=== PATIENT | male | born 1935 | race Caucasian/White ===

== ENCOUNTER → 2018-12-11 | Outpatient (CLI) | payer OTHER ==
[~2018-12-11] MED LIST: ADULT LOW DOSE81 MG PO; AMBIEN 10 MG TA10 MG PO; ASPIRIN EC81 M1 PO; BACTROBAN NASAL1 GM NS; DONNATAL EXTEN1 EACH PO; EXCEDRIN CAPLE1 EACH PO; FLOMAX PO; HIBICLENS120 ML TP; IMITREX 50 MG T50 MG PO; IMITREX100 MG PO; LIPITOR80 MG PO; LORTAB 5 MG/5001 TAB PO; MELOXICAM7.5 MG PO; MOBIC7.5 MG PO; NEURONTIN300 MG PO; NITROSTAT0.4 MG SL; OMEGA-3100 MG PO; PERCOCET 5-3251 EACH PO; PRILOSEC 20 MG20 MG PO; SIMVASTATIN20 MG PO; TOPROL XL50 MG PO; UNICOMPLEX M TA1 TA1 PO; VIAGRA100 MG PO; XANAX 0.5 MG0.5 MG PO; ZESTRIL10 MG PO
--- NOTE | 2018-12-14 08:34 | SLE ---
[facility] [place] [address] [place] [address] POLYSOMNOGRAPHY STUDY Name: DESTINY BARBER [id number] Admission: 12/11/18 Attend Phys: Babak Deo MD Discharge: Date of : 35 Report #: [id number] THIS REPORT FOR: //name// CC: Babak Hines MD DATE OF SERVICE: 12/11/2018 ATTENDING PHYSICIAN: Dr. Ulises Hines. The patient is an 83-year-old who weighs 216 pounds with a BMI of 31. The patient had a home sleep study and was found to have severe JANA at an AHI of 43 per hour. The patient returned for in-lab CPAP titration study. During the night study, the patient spent 390 minutes in bed and slept for 183 minutes with a low sleep efficiency of 47%. Sleep latency was 16.9 minutes with a REM latency of 62 minutes. Sleep architecture showed normal stage 1 sleep, increased stage 2 sleep, absent slow wave and reduced REM sleep. EKG monitoring revealed an average heart rate of 61 beats per minute. No sustained arrhythmias observed. No PLMS observed. The patient was started on CPAP at 5 cm of water and titrated up to 9 cm of water. At the final pressure, the patient slept for 38 minutes including 2 minutes of supine REM sleep. The patient's AHI was 12.5 per hour and oxygen saturation remained above 91%. The patient had 4 hypopneas and 4 central apneas at this pressure. I would recommend the patient should be placed on an auto CPAP with a minimum pressure of 8 cm of water and the maximum pressure of 12 cm of water. IMPRESSION: 1. Severe sleep apnea diagnosed by home sleep study. 2. No clinically significant periodic limb movements. RECOMMENDATIONS: 1. The patient should be placed on an auto CPAP with a minimum pressure of 8 cm of water and a maximum of 12 cm of water. The patient should have a download data in 30-90 days to assess the efficacy of the current auto PAP pressure and make sure AHI remains less than 5 per hour. Weight loss is strongly advised. 2. 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 3. Cautioned regarding driving until symptoms of sleep apnea resolve with the use of CPAP. [facility] [address] [place] [address] POLYSOMNOGRAPHY STUDY Name: DESTINY BARBER Room #: REG [facility].#: [id number] Admission: 12/11/18 Attend Phys: Babak Doe MD Discharge: Date of : 35 Report #: [id number] 4. The patient also had sleep maintenance insomnia. If this is a chronic condition, then it should be further evaluated and treated according to the etiology. <ELECTRONICALLY SIGNED> By: Babak Doe MD 12/14/18 0834 1440 1859 Babak Doe MD /nt
== END ==
LOC: SLEEPLAB 13:45
DX: G47.30 Sleep apnea, unspecified (principal)

== ENCOUNTER 2019-01-02 18:37 | Emergency (ER) | payer OTHER ==
[~2019-01-02] VITALS: Ht 177.8 cm; Wt 99.8 kg
--- NOTE | ~2019-01-02 | EKG ---
[address] [address] [place] [address] ELECTROCARDIOGRAM REPORT Name: KARENGUSTABODESTINY URIAS Room #: REG GREG Cruz#: [id number] Admission: 01/02/19 Attend Phys: Discharge: Date of : 35 Report #: [id number] THIS REPORT FOR: //name// [facility] ED Test Date: 2019-01-02 Test Time: 19:34:38 Pat Name: DESTINY BARBER Department: Room: Gender: M Leasing Coordinator: CATHERINE : 1935 Requested By: Quang Tripathi Order Number: [id number] MD: Measurements Intervals [place] Rate: 87 P: [place]: QRS: 84 QRSD: 146 T: 42 QT: 384 QTc: 462 Interpretive Statements Atrial fibrillation Right bundle branch block No previous ECG available for comparison [email or web address] By: 33 33 Chastity Haywood MD /EPI
[~2019-01-02 18:37] MED LIST changes: -MELOXICAM7.5 MG PO; -NEURONTIN300 MG PO; -SIMVASTATIN20 MG PO
[2019-01-02] MEDS ORDERED: SIMVASTATIN20 MG PO (19:12)
[2019-01-02 19:25] LABS: ABSOLUTE NEUTROPHILS 11.3 thou/uL (1.4-8.2); BASOPHILS 0.3 % (0.0-2.0); EOSINOPHILS 1.1 % (0.0-3.0); HEMATOCRIT 47.9 % (42.0-52.0); HEMOGLOBIN 16.1 gm/dL (14.0-18.0); LYMPHOCYTES 12.6 % (24.0-44.0); MCHC 33.5 g/dL (28.0-37.0); MCV 89.5 fL (80.0-100.0); MONOCYTES 8.6 % (1.0-8.0); PLATELET COUNT 169 thou/uL (150-400); POLYS 77.4 % (36.0-66.0); RBC 5.36 mil/uL (4.50-6.00); RDW 14.1 % (10.5-14.5); WBC 14.5 thou/uL (4.0-11.0)
[2019-01-02 19:36] LABS: CALCIUM 9.2 mg/dL (8.5-10.1); CREATININE 0.9 mg/dL (0.7-1.3)
[2019-01-02] MEDS ORDERED: MELOXICAM7.5 MG PO (20:26)
[2019-01-02] MEDS ORDERED: NEURONTIN300 MG PO (20:27)
[2019-01-02 21:30] LABS: URINE BILIRUBIN NEGATIVE (Negative); URINE BLOOD NEGATIVE (Negative); URINE CLARITY CLEAR; URINE COLOR YELLOW; URINE GLUCOSE-RANDOM* NEGATIVE (Negative); URINE KETONES NEGATIVE (Negative); URINE LEUKOCYTES-REFLEX NEGATIVE (Negative); URINE NITRITE-REFLEX NEGATIVE (Negative); URINE PROTEIN (DIPSTICK) NEGATIVE (Negative); URINE SPECIFIC GRAVITY 1.025 (1.005-1.035); URINE UROBILINOGEN 0.2 E.U./dl (0.2-1.0)
[2019-01-02 22:26] VITALS: BP 135/66
--- NOTE | 2019-01-03 17:31 | EKG ---
[address] [place] [address] ELECTROCARDIOGRAM REPORT Name: DESTINY BARBER Room #: DEP MRodrigue#: [id number] Admission: 01/02/19 Attend Phys: Discharge: 01/02/19 Date of : 35 Report #: [id number] THIS REPORT FOR: //name// [facility] ED Test Date: 2019-01-02 Test Time: 19:34:38 Pat Name: DESTINY BARBER Department: Room: Gender: Rouge Mixer: CATHERINE : 1935 Requested By: Quang Tripathi Order Number: [id number] MD: Neo Frank Measurements Intervals [place] Rate: 87 P: [place]: QRS: 84 QRSD: 146 T: 42 QT: 384 QTc: 462 Interpretive Statements Sinus rhythm Right bundle branch block Compared to ECG 01/28/2011 07:26:25 No significant change was found Electronically Signed On 01-03-2019 17:31:11 CDT by Neo Frank [email or web address] <ELECTRONICALLY SIGNED> By: Neo Frank MD, [facility] 01/03/19 1731 193 33 Neo Frank MD, FACC /EPI
== END 2019-01-02 22:30 | disposition home or self-care (01) ==
LOC: ER 18:37
PROVIDERS: Emergency Medicine
DX: B34.9 Viral infection, unspecified (principal); R05 Cough; G43.909 Migraine, unspecified, not intractable, without status migrainosus; Z98.890 Other specified postprocedural states

== ENCOUNTER 2019-03-25 02:15 | Emergency (ER) | payer OTHER ==
[~2019-03-25] VITALS: Ht 180.3 cm; Wt 97.5 kg
[~2019-03-25 02:15] MED LIST changes: +MELOXICAM7.5 MG PO; +NEURONTIN300 MG PO; +SIMVASTATIN20 MG PO
[2019-03-25 02:48] LABS: ABSOLUTE NEUTROPHILS 3.9 thou/uL (1.4-8.2); BASOPHILS 0.6 % (0.0-2.0); EOSINOPHILS 2.5 % (0.0-3.0); HEMATOCRIT 45.3 % (42.0-52.0); HEMOGLOBIN 14.9 gm/dL (14.0-18.0); LYMPHOCYTES 34.3 % (24.0-44.0); MCH 29.5 pg (26.0-34.0); MCHC 32.9 g/dL (28.0-37.0); MCV 89.7 fL (80.0-100.0); MONOCYTES 9.9 % (1.0-8.0); PLATELET COUNT 173 thou/uL (150-400); POLYS 52.7 % (36.0-66.0); RBC 5.05 mil/uL (4.50-6.00); RDW 13.6 % (10.5-14.5); WBC 7.5 thou/uL (4.0-11.0)
[2019-03-25 03:02] LABS: ANION GAP 6 mmol/L (7-16); BUN 13 mg/dL (7-18); CHLORIDE 105 mmol/L (98-107); CO2 30 mmol/L (21-32); GLUCOSE 105 mg/dL (74-106); POTASSIUM 3.6 mmol/L (3.5-5.1); SODIUM 141 mmol/L (136-145)
[2019-03-25 03:12] LABS: ALBUMIN 3.6 g/dL (3.4-5.0); DIRECT BILIRUBIN < 0.1 mg/dL (<0.1-0.2); SGOT 26 U/L (15-37); SGPT 36 U/L (30-65); TOTAL BILIRUBIN 0.3 mg/dL (<0.1-1.0); TOTAL PROTEIN 7.1 g/dL (6.4-8.2); TROPONIN-I <0.06 ng/mL (<0.06)
[2019-03-25 05:15] VITALS: BP 122/64
--- NOTE | 2019-03-25 11:26 | EKG ---
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
== END 2019-03-25 05:15 | disposition home or self-care (01) ==
LOC: ER 02:15
PROVIDERS: Emergency Medicine
DX: R07.9 Chest pain, unspecified (principal); G43.909 Migraine, unspecified, not intractable, without status migrainosus; Z95.5 Presence of coronary angioplasty implant and graft

== ENCOUNTER → 2019-04-06 | Outpatient (CLI) | payer OTHER | END | disposition home or self-care (01) | LOC: SJCVCIMAG 10:54 | DX: I25.10 Atherosclerotic heart disease of native coronary artery without angina pectoris (principal); E78.5 Hyperlipidemia, unspecified; Z95.1 Presence of aortocoronary bypass graft ==

== ENCOUNTER 2019-04-29 19:26 | Inpatient (IN) | payer OTHER ==
[~2019-04-29] VITALS: Ht 177.8 cm; Wt 98.7 kg
[2019-04-29 19:28] VITALS: BP 144/60
[2019-04-29 19:43] LABS: URINE BILIRUBIN NEGATIVE (Negative); URINE BLOOD NEGATIVE (Negative); URINE CLARITY CLEAR; URINE COLOR YELLOW; URINE GLUCOSE-RANDOM* NEGATIVE (Negative); URINE KETONES NEGATIVE (Negative); URINE LEUKOCYTES-REFLEX NEGATIVE (Negative); URINE NITRITE-REFLEX NEGATIVE (Negative); URINE PROTEIN (DIPSTICK) NEGATIVE (Negative); URINE SPECIFIC GRAVITY 1.025 (1.005-1.035); URINE UROBILINOGEN 0.2 E.U./dl (0.2-1.0)
[2019-04-29 20:27] LABS: ABSOLUTE NEUTROPHILS 4.1 thou/uL (1.4-8.2); BASOPHILS 0.4 % (0.0-2.0); HEMATOCRIT 42.9 % (42.0-52.0); HEMOGLOBIN 14.3 gm/dL (14.0-18.0); LYMPHOCYTES 34.5 % (24.0-44.0); MCH 29.7 pg (26.0-34.0); MCHC 33.3 g/dL (28.0-37.0); MCV 89.3 fL (80.0-100.0); MONOCYTES 10.9 % (1.0-8.0); PLATELET COUNT 208 thou/uL (150-400); POLYS 52.2 % (36.0-66.0); RDW 13.6 % (10.5-14.5); WBC 7.9 thou/uL (4.0-11.0)
[2019-04-29 20:37] LABS: PROTIME 10.7 Seconds (9.3-11.4)
[2019-04-29 20:38] LABS: CALCIUM 9.1 mg/dL (8.5-10.1); POTASSIUM 4.3 mmol/L (3.5-5.1)
[2019-04-29 20:58] LABS: TOTAL BILIRUBIN 0.3 mg/dL (<0.1-1.0); TOTAL PROTEIN 7.9 g/dL (6.4-8.2)
[2019-04-29 21:46] VITALS: BP 145/71
[2019-04-29 23:05] VITALS: BP 118/51
[2019-04-29 23:19] VITALS: BP 128/107
[2019-04-30] MEDS ORDERED: EXCEDRIN CAPLE1 EACH PO (00:19)
[2019-04-30 00:45] VITALS: BP 145/81
[2019-04-30 05:17] VITALS: BP 131/57
[2019-04-30 06:06] LABS: HEMATOCRIT 38.1 % (42.0-52.0); HEMOGLOBIN 12.5 gm/dL (14.0-18.0); MCH 29.6 pg (26.0-34.0); MCHC 32.9 g/dL (28.0-37.0); MCV 89.9 fL (80.0-100.0); RBC 4.24 mil/uL (4.50-6.00); WBC 7.9 thou/uL (4.0-11.0)
[2019-04-30 06:39] LABS: CALCIUM 8.2 mg/dL (8.5-10.1); CREATININE 0.9 mg/dL (0.7-1.3)
[2019-04-30 08:20] VITALS: BP 137/68
[2019-04-30 15:20] VITALS: BP 124/60
[2019-04-30 20:50] VITALS: BP 121/59
[2019-05-01 05:25] VITALS: BP 122/63
[2019-05-01 08:15] VITALS: BP 131/71
[2019-05-01 13:34] VITALS: BP 131/71
[2019-05-01 13:46] LABS: HEMATOCRIT 39.6 % (42.0-52.0); HEMOGLOBIN 13.1 gm/dL (14.0-18.0); MCH 29.8 pg (26.0-34.0); MCV 90.4 fL (80.0-100.0); RBC 4.37 mil/uL (4.50-6.00); RDW 13.7 % (10.5-14.5); WBC 6.6 thou/uL (4.0-11.0)
--- NOTE | 2019-05-03 17:07 | PATH ---
[facility] [address] [place] [address] PATHOLOGY RPT PROCEDURE Name: DESTINY STONE Room #: 207-P DIS IN M.R.#: [id number] Admission: 04/29/19 Date of : 35 Discharge: 05/01/19 Report #: [id number] Path Case #: [id number] [facility] Accession Number: [id number] . 01 Material submitted: . stomach - BIOPSY OF GASTRITIS R/O H. PYLORI X2 . 01 Clinical history: . GI bleed, rule out H. pylori . 02 Diagnosis: Gastric mucosa, gastritis R/O H. pylori, endoscopic biopsy: - Mild reactive gastropathy. - Negative for intestinal metaplasia or atrophy. - Negative for Helicobacter pylori (properly controlled immunohistochemical stain performed). . (IUV:kolby; 05/03/2019) QMS 05/03/2019 1419 Local . 02 Electronically signed: . Oksana U Vadlamani, MD, Pathologist NPI- [id number] . 01 Gross description: . The specimen is received in formalin, labeled "Destiny Stone, BX of gastritis" and consists of 4 fragments of pedersen tissue measuring 0.9 x 0.9 x 0.2 cm in aggregate which are entirely submitted in A1. (SDY; 05/02/2019) SYU/SYU 05/02/2019 1419 Local . 02 Pathologist provided ICD-10: K31.9 . 02 CPT . 043682, V78226 Specimen Comment: A courtesy copy of this report has been sent to [phone] Specimen Comment: Report sent to Performed at: [address], [place] [id number] MD Melo Russell MD Phone: [phone] Performed at: [address] [id number] MD Oksana Camarillo MD Phone: [phone]
--- NOTE | 2019-05-04 17:51 | P ---
[facility] [place] [address] [place] [address] PROCEDURE REPORT Name: DESTINY BARBER Room #: 207-P [place] IN M.R.#: [id number] Admission: 04/29/19 Attend Phys: Troy Kiser MD Discharge: 05/01/19 Date of : 35 Report #: [id number] THIS REPORT FOR: cc: Troy Kiser MD, Neal A. [facility] ~ CC: Troy Kiser MD UPPER ENDOSCOPY REPORT BRIEF HISTORY: The patient is an 84-year-old male who [facility] with rectal bleeding. He also reports intermittent solid food dysphagia. He does use nonsteroidals as well. PREOPERATIVE DIAGNOSES: 1. Gastrointestinal bleeding. 2. Dysphagia. POSTOPERATIVE DIAGNOSES: 1. Moderate diffuse gastritis. 2. Dysphagia. MEDICATIONS: Deep sedation with propofol per anesthesia. SPECIMEN: Biopsies of gastritis. ESTIMATED BLOOD LOSS: 3 mL. PROCEDURE: EGD with biopsy. FINDINGS: Prior to propofol sedation, procedure of upper endoscopy was discussed with the patient as well as risks, benefits and complications. He indicates he understands and desires to proceed. DESCRIPTION OF PROCEDURE: With the patient in left lateral decubitus position, the Olympus video endoscope was inserted in the cervical esophagus under direct vision without difficulty. Examination of this organ throughout its entire length revealed normal esophageal mucosa down the squamocolumnar junction. There is no evidence of ulcers, erosions or bleeding lesions. Even though he has had complaints of dysphagia, a definite stricture or ring was not seen. The scope was advanced into the stomach, which was examined on end view as well as retroflexed views. There was a diffuse gastritis, but there were no ulcers or erosions. No blood was seen in the stomach. Upon retroflexion, no mass lesions were seen. The pylorus, duodenal bulb and postbulbar duodenal sweep were inspected and noted to be unremarkable. At that point, the scope was slowly withdrawn and careful circumferential views confirmed the above findings. [facility] [address] [place] [address] PROCEDURE REPORT Name: DESTINY BARBER Room #: 207-P [place] IN M.R.#: [id number] Admission: 04/29/19 Attend Phys: Troy Kiser MD Discharge: 05/01/19 Date of : 35 Report #: [id number] patient tolerated the procedure well. Following the procedure, he was dilated with passage of 52-[place] James dilator. He does have solid food dysphagia, but a definite stricture or ring was not seen and he is empirically dilated. DISPOSITION: Source for gastrointestinal blood loss was not seen on this examination. We will proceed with colonoscopy at this point. Also, he can return for dilation on an as needed basis for symptoms of dysphagia. <ELECTRONICALLY SIGNED> By: Destiny Becerril MD 05/04/19 1751 1156 2309 Destiny Becerril MD /jo
--- NOTE | 2019-05-04 17:52 | P ---
[facility] [place] [address] [place] [address] PROCEDURE REPORT Name: DESTINY BARBER Room #: 207-P [facility] IN M.R.#: [id number] Admission: 04/29/19 Attend Phys: Troy Kiser MD Discharge: 05/01/19 Date of : 35 Report #: [id number] THIS REPORT FOR: cc: Troy Kiser MD, Neal A. [facility] ~ CC: SANDY Kiser MD INPATIENT COLONOSCOPY NOTE BRIEF HISTORY: The patient is an 84-year-old male who was admitted yesterday with rectal bleeding. He has had a segmental resection for diverticular disease in the past. PREOPERATIVE DIAGNOSIS: Rectal bleeding. POSTOPERATIVE DIAGNOSES: 1. Diverticulosis coli, greater in left colon than right colon. 2. Minimal internal hemorrhoids. 3. Surgical anastomosis, distal sigmoid consistent with previous segmental sigmoid resection. ESTIMATED BLOOD LOSS: None. PROCEDURE: Colonoscopy to cecum and terminal ileum. FINDINGS: Prior to propofol sedation, procedure of colonoscopy was discussed with the patient as well as potential risks and its complications. He indicates he understands and desires to proceed. DESCRIPTION OF PROCEDURE: With the patient in left lateral decubitus position, digital examination was completed, which revealed patulous anal canal. Subsequently, the Olympus video colonoscope was introduced into the rectum, advanced under direct vision to the cecum. Done with minimal difficulty. Cecum was identified by the ileocecal valve and the appendiceal orifice. I was able to visualize the distal segment of terminal ileum, which was inspected and noted to be unremarkable. At that point, the scope was withdrawn and careful circumferential views obtained. Upon slow withdrawal of the scope, the prep was good. The mucosa was within normal limits, normal vascular pattern, and normal light reflex. As we withdrew the scope, no neoplastic lesions were seen and bleeding was not identified. He was noted to have diverticula throughout much of the colon including the proximal colon. It was greater in the left colon than the right colon. As we withdrew the scope distally, no additional abnormalities were seen and the diverticular disease became more prominent. In the distal sigmoid, there was an end-to-side anastomosis. The blind end was [address] [address] PROCEDURE REPORT Name: DESTINY BARBER Room #: 207-P DIS IN M.R.#: [id number] Admission: 04/29/19 Attend Phys: Troy Kiser MD Discharge: 05/01/19 Date of : 35 Report #: [id number] entered and there was noted to be diverticular disease, but no other abnormalities were identified. At the level of the anastomosis, there was a single diverticulum with a small amount of old blood. Active bleeding was not seen. This potentially could have been the site of a diverticular bleed. No blood was seen elsewhere. Scope was withdrawn in the rectum, no abnormalities were seen. Upon retroflexion, minimal hemorrhoids were seen. Scope was withdrawn. The patient tolerated the procedure well. DISPOSITION: The patient with GI bleeding and found to have diverticular disease as noted. Active bleeding was not encountered. He may have had bleeding from a single diverticulum. We will advance diet at this point in time. Also, at this point in life, he is not likely to gain any further benefit from routine screening colonoscopy. He should return to care of Dr. Troy Kiser after discharge. <ELECTRONICALLY SIGNED> By: Destiny Becerril MD 05/04/19 1752 1223 0008 Destiny Becerril MD /nt
== END 2019-05-01 14:46 | disposition home or self-care (01) | DRG 379 ==
LOC: ER 19:26 → 2N 21:06 → EROBS 21:06 → 2N 23:09
PROVIDERS: Nurse Practitioner Family; Physician Assistant; Specialist; ADMIT Family Medicine
PROC: 0DJD8ZZ Inspection of Lower Intestinal Tract, Via Natural or Artificial Opening Endoscopic (ICD-10-PCS; principal; 2019-04-29)
PROC: 0DB68ZX Excision of Stomach, Via Natural or Artificial Opening Endoscopic, Diagnostic (ICD-10-PCS; 2019-04-29)
DX: K29.71 Gastritis, unspecified, with bleeding (principal); I25.10 Atherosclerotic heart disease of native coronary artery without angina pectoris; E78.5 Hyperlipidemia, unspecified; M19.90 Unspecified osteoarthritis, unspecified site; G43.909 Migraine, unspecified, not intractable, without status migrainosus; G62.9 Polyneuropathy, unspecified; F10.10 Alcohol abuse, uncomplicated; R13.10 Dysphagia, unspecified; K64.8 Other hemorrhoids; K57.31 Diverticulosis of large intestine without perforation or abscess with bleeding; K21.9 Gastro-esophageal reflux disease without esophagitis; D64.9 Anemia, unspecified; K59.00 Constipation, unspecified; Z80.0 Family history of malignant neoplasm of digestive organs; Z95.1 Presence of aortocoronary bypass graft; Z98.42 Cataract extraction status, left eye; Z98.41 Cataract extraction status, right eye; Z79.899 Other long term (current) drug therapy; Z79.82 Long term (current) use of aspirin
CPT/HCPCS: 10081; 62110; 62900; 70005

== ENCOUNTER 2019-09-14 07:59 | Emergency (ER) | payer OTHER ==
[~2019-09-14] VITALS: Ht 177.8 cm; Wt 97.5 kg
[2019-09-14 08:39] LABS: URINE BILIRUBIN NEGATIVE (Negative); URINE BLOOD NEGATIVE (Negative); URINE CLARITY CLEAR; URINE COLOR YELLOW; URINE GLUCOSE-RANDOM* NEGATIVE (Negative); URINE KETONES NEGATIVE (Negative); URINE LEUKOCYTES-REFLEX NEGATIVE (Negative); URINE NITRITE-REFLEX NEGATIVE (Negative); URINE PROTEIN (DIPSTICK) NEGATIVE (Negative); URINE UROBILINOGEN 0.2 E.U./dl (0.2-1.0)
[2019-09-14] MEDS ORDERED: MEDROLDOSEPACK PO (09:18)
[2019-09-14 09:30] VITALS: BP 126/59
== END 2019-09-14 09:31 | disposition home or self-care (01) ==
LOC: ER 07:59
PROVIDERS: Emergency Medicine
DX: S33.5XXA Sprain of ligaments of lumbar spine, initial encounter (principal); G43.909 Migraine, unspecified, not intractable, without status migrainosus; G62.9 Polyneuropathy, unspecified; Z95.1 Presence of aortocoronary bypass graft; X50.1XXA Overexertion from prolonged static or awkward postures, initial encounter; Y93.89 Activity, other specified; Y92.89 Other specified places as the place of occurrence of the external cause; Y99.8 Other external cause status

== ENCOUNTER → 2019-10-09 | Outpatient (CLI) | payer OTHER ==
[~2019-10-09] MED LIST changes: +MEDROLDOSEPACK PO
== END ==
LOC: SJCVC 16:11
PROVIDERS: ATTEND Internal Medicine Cardiovascular Disease
DX: I25.10 Atherosclerotic heart disease of native coronary artery without angina pectoris (principal); R94.31 Abnormal electrocardiogram [ECG] [EKG]; I45.10 Unspecified right bundle-branch block; E78.00 Pure hypercholesterolemia, unspecified; G47.33 Obstructive sleep apnea (adult) (pediatric); I65.23 Occlusion and stenosis of bilateral carotid arteries; Z95.1 Presence of aortocoronary bypass graft; Z79.899 Other long term (current) drug therapy; Z87.891 Personal history of nicotine dependence

== ENCOUNTER → 2020-02-19 | Outpatient (CLI) | payer OTHER | LOC: SJCVC 09:58 | PROVIDERS: ATTEND Internal Medicine Cardiovascular Disease | DX: R94.31 Abnormal electrocardiogram [ECG] [EKG] (principal); I45.2 Bifascicular block; I25.810 Atherosclerosis of coronary artery bypass graft(s) without angina pectoris; I10 Essential (primary) hypertension; E78.00 Pure hypercholesterolemia, unspecified; E11.42 Type 2 diabetes mellitus with diabetic polyneuropathy; I73.9 Peripheral vascular disease, unspecified; I65.23 Occlusion and stenosis of bilateral carotid arteries; E78.2 Mixed hyperlipidemia; Z95.1 Presence of aortocoronary bypass graft; Z79.82 Long term (current) use of aspirin; Z79.899 Other long term (current) drug therapy; Z87.891 Personal history of nicotine dependence ==

== ENCOUNTER 2020-03-12 09:43 | Emergency (ER) | payer OTHER ==
[~2020-03-12] VITALS: Ht 177.8 cm; Wt 95.3 kg
[2020-03-12 11:44] LABS: ANION GAP 6 mmol/L (7-16); BUN 10 mg/dL (7-18); CALCIUM 8.7 mg/dL (8.5-10.1); CHLORIDE 102 mmol/L (98-107); CO2 27 mmol/L (21-32); CREATININE 1.1 mg/dL (0.7-1.3); GLUCOSE 109 mg/dL (74-106); POTASSIUM 4.2 mmol/L (3.5-5.1); SODIUM 135 mmol/L (136-145)
[2020-03-12 11:52] LABS: ABSOLUTE NEUTROPHILS 4.7 thou/uL (1.4-8.2); BASOPHILS 0.5 % (0.0-2.0); EOSINOPHILS 0.7 % (0.0-3.0); HEMATOCRIT 45.5 % (42.0-52.0); HEMOGLOBIN 15.2 gm/dL (14.0-18.0); LYMPHOCYTES 18.8 % (24.0-44.0); MCH 29.7 pg (26.0-34.0); MCHC 33.5 g/dL (28.0-37.0); MCV 88.6 fL (80.0-100.0); MONOCYTES 11.1 % (1.0-8.0); PLATELET COUNT 167 thou/uL (150-400); POLYS 68.9 % (36.0-66.0); RBC 5.14 mil/uL (4.50-6.00); RDW 14.2 % (10.5-14.5); WBC 6.8 thou/uL (4.0-11.0)
[2020-03-12 11:54] LABS: ALBUMIN 3.4 g/dL (3.4-5.0); SGOT 24 U/L (15-37); SGPT 29 U/L (16-63); TOTAL BILIRUBIN 0.4 mg/dL (0.2-1.0); TOTAL PROTEIN 7.1 g/dL (6.4-8.2); TROPONIN-I <0.06 ng/mL (<0.06)
[2020-03-12 13:30] VITALS: BP 130/77
--- NOTE | 2020-03-13 07:26 | EKG ---
[facility] [place] [address] ELECTROCARDIOGRAM REPORT Name: DESTINY BARBER [facility] [id number] Admission: 03/12/20 Attend Phys: Discharge: 03/12/20 Date of : 35 Report #: [id number] [facility] ED Test Date: 2020-03-12 Test Time: 13:57:01 Pat Name: DESTINY BARBER Department: Room: Gender: M Tax Staff Accountant: JCJOYCE : 1935 Requested By: Steve Shah Order Number: [id number] MD: Neo Frank Measurements Intervals [place] Rate: 67 P: 40 [place]: 143 QRS: 33 QRSD: 153 T: 15 QT: 439 QTc: 464 Interpretive Statements Sinus rhythm Right bundle branch block Compared to ECG 03/25/2019 02:22:05 No significant changes Electronically Signed On 03-13-2020 7:25:52 SHEET CATCHER by Neo Frank [email or web address] <ELECTRONICALLY SIGNED> By: Neo Frank MD, [facility] 03/13/20 0725 1357 1357 Neo Frank MD, FACC /EPI
== END 2020-03-12 14:07 | disposition home or self-care (01) ==
LOC: ER 09:43
PROVIDERS: Physician Assistant
DX: U07.1 COVID-19 (principal); G43.909 Migraine, unspecified, not intractable, without status migrainosus; Z95.1 Presence of aortocoronary bypass graft; Z79.82 Long term (current) use of aspirin; Z79.899 Other long term (current) drug therapy

== ENCOUNTER → 2020-07-21 | Outpatient (CLI) | payer OTHER | LOC: RAD 11:29 | PROVIDERS: ATTEND Nurse Practitioner | DX: M25.562 Pain in left knee (principal) ==

== ENCOUNTER → 2020-08-19 | Outpatient (CLI) | payer OTHER | LOC: SJCVCIMAG 08:41 | PROVIDERS: ATTEND Internal Medicine Cardiovascular Disease | DX: I65.23 Occlusion and stenosis of bilateral carotid arteries (principal); I35.1 Nonrheumatic aortic (valve) insufficiency; I45.10 Unspecified right bundle-branch block; R53.83 Other fatigue; I25.10 Atherosclerotic heart disease of native coronary artery without angina pectoris; I10 Essential (primary) hypertension; E78.5 Hyperlipidemia, unspecified; Z95.1 Presence of aortocoronary bypass graft; Z79.82 Long term (current) use of aspirin; Z79.899 Other long term (current) drug therapy; Z87.891 Personal history of nicotine dependence ==

== ENCOUNTER → 2021-02-18 | Outpatient (CLI) | payer OTHER | LOC: SJCVC 09:46 | PROVIDERS: ATTEND Internal Medicine Cardiovascular Disease | DX: R94.31 Abnormal electrocardiogram [ECG] [EKG] (principal); I45.2 Bifascicular block; I25.810 Atherosclerosis of coronary artery bypass graft(s) without angina pectoris; I10 Essential (primary) hypertension; E11.42 Type 2 diabetes mellitus with diabetic polyneuropathy; E78.00 Pure hypercholesterolemia, unspecified; I73.9 Peripheral vascular disease, unspecified; I65.23 Occlusion and stenosis of bilateral carotid arteries; J32.9 Chronic sinusitis, unspecified; E78.2 Mixed hyperlipidemia; G47.33 Obstructive sleep apnea (adult) (pediatric); Z79.82 Long term (current) use of aspirin; Z79.899 Other long term (current) drug therapy; Z72.89 Other problems related to lifestyle; Z87.891 Personal history of nicotine dependence ==